=== PATIENT | female | born 1980 | race Hispanic/Latino ===

== ENCOUNTER 2019-02-14 22:48 | Emergency (ER) | payer SELFPAY ==
[~2019-02-14] VITALS: Ht 152.4 cm; Wt 80.0 kg
[~2019-02-14 22:48] MED LIST: DILANTIN100 MG OR; FOLIC ACID400 MC1 OR; PRE NATAL VIT
[2019-02-14] MEDS ORDERED: NAPROSYN250 MG PO (22:59)
[2019-02-14] MEDS ORDERED: HYDROXYCHLOR200 M1 PO (22:59)
[2019-02-14] MEDS ORDERED: KEFLEX500 M1 PO (23:51)
[2019-02-14] MEDS ORDERED: BACTRIM DS1 TAB PO (23:51)
[2019-02-14] MEDS ORDERED: IBUPROFEN600 MG PO (23:51)
[2019-02-15 00:24] VITALS: BP 138/84
== END 2019-02-15 00:15 | disposition home or self-care (01) | DRG 603 ==
LOC: ED 22:48
DX: L02.31 Cutaneous abscess of buttock (principal); G40.909 Epilepsy, unspecified, not intractable, without status epilepticus